=== PATIENT | female | born 1950 | race Caucasian/White ===

== ENCOUNTER → 2019-10-31 | Outpatient (CLI) | payer MEDICARE ==
[2019-10-31 15:40] LABS: RHEUMATOID FACTOR QUANT < 10.0 IU/ML (<15.0); THYROID STIMULATING HORMONE 0.866 uIU/ML (0.358-3.740)
== END ==
LOC: M LAB 14:21
PROVIDERS: ATTEND Psychiatry & Neurology Neurology
DX: R51 Headache (principal)